=== PATIENT | male | born 1965 | race African-American/Black ===

== ENCOUNTER 2020-11-05 17:33 | Emergency (ER) | payer OTHER, MEDICAID ==
[~2020-11-05] VITALS: Ht 172.7 cm; Wt 109.0 kg
[~2020-11-05 17:33] MED LIST: KEFLEX
[2020-11-05] MEDS ORDERED: IBUPROFEN 600MG TABLET PO ONE (18:45)
[2020-11-05 21:20] VITALS: BP 145/87
== END 2020-11-05 21:27 | disposition home or self-care (01) ==
LOC: ER 18:05
DX: S39.012A Strain of muscle, fascia and tendon of lower back, initial encounter (principal); S16.1XXA Strain of muscle, fascia and tendon at neck level, initial encounter; V49.49XA Driver injured in collision with other motor vehicles in traffic accident, initial encounter; Y93.9 Activity, unspecified; Y92.410 Unspecified street and highway as the place of occurrence of the external cause; Z85.46 Personal history of malignant neoplasm of prostate
CPT/HCPCS: 99284